=== PATIENT | female | born 1975 | race Caucasian/White ===

== ENCOUNTER → 2018-11-15 | Outpatient (CLI) | payer OTHER | END | disposition home or self-care (01) | LOC: PLD 14:06 → LAB SHORT 14:06 | DX: D22.4 Melanocytic nevi of scalp and neck (principal) | CPT/HCPCS: 88305 ==

== ENCOUNTER 2019-12-28 01:44 | Emergency (ER) | payer BC ==
[~2019-12-28] VITALS: Ht 175.3 cm; Wt 70.3 kg
[2019-12-28] MEDS ORDERED: Crestor20 MG PO (02:05)
[2019-12-28] MEDS ORDERED: SPIR50 PO (02:05)
[2019-12-28] MEDS ORDERED: FLUV50 PO (02:05)
[2019-12-28 02:25] LABS: BASOPHILS ABSOLUTE AUTO 0.05 K/mm3 (0.00-0.23); BASOPHILS PERCENT AUTO 1 % (0-2); EOSINOPHILS ABSOLUTE AUTO 0.09 K/mm3 (0.00-0.68); EOSINOPHILS PERCENT AUTO 1 % (0-6); Hematocrit 38.6 % (33.0-51.0); Hemoglobin 12.7 g/dL (11.5-16.0); IMMATURE GRAN ABSOLUTE AUTO 0.01 K/mm3 (0.00-0.10); IMMATURE GRAN PERCENT AUTO 0 % (0-1); LYMPHOCYTES ABSOLUTE AUTO 2.31 K/mm3 (0.84-5.20); LYMPHOCYTES PERCENT AUTO 34 % (21-46); MONOCYTES ABSOLUTE AUTO 0.39 K/mm3 (0.16-1.47); MONOCYTES PERCENT AUTO 6 % (4-13); Mean Corpuscular HGB 28.9 pg (26.0-34.0); Mean Corpuscular HGB Conc 32.9 g/dL (31.5-36.5); Mean Corpuscular Volume 88 fL (80-100); Mean Platelet Volume 10.5 fL (9.1-12.4); NEUTROPHILS ABSOLUTE AUTO 4.04 K/mm3 (1.96-9.15); NEUTROPHILS PERCENT AUTO 59 % (41-73); Platelet Count 236 K/mm3 (150-400); RDW Coefficient Variation 12.5 % (11.7-14.2); RDW Standard Deviation 39.5 fL (35.1-46.3); White Blood Cell Count 6.89 K/mm3 (4.00-11.30)
[2019-12-28 02:39] LABS: Alanine Aminotransfer (ALT/SGP 17 U/L (12-78); Albumin, Blood 3.9 g/dL (3.4-5.0); Albumin/Globulin Ratio 1.1 (0.8-1.8); Alk Phos 56 U/L (50-136); Anion Gap 5 mmol/L (6-16); Aspartate Aminotrans (AST/SGOT 14 U/L (12-37); Bilirubin, Total 0.3 mg/dL (0.1-1.0); Blood Urea Nitrogen 16 mg/dL (8-24); CO2, Blood 26 mmol/L (21-32); Calcium, Blood 8.8 mg/dL (8.5-10.1); Chloride, Blood 108 mmol/L (98-108); Globulin, Blood 3.7 g/dL (2.2-4.0); Glomerular Filtration Rate >60 (60-); Glucose, Blood 94 mg/dL (70-99); Potassium, Blood 3.6 mmol/L (3.5-5.5); Sodium, Blood 139 mmol/L (136-145); Total Protein, Blood 7.6 g/dL (6.4-8.2); Troponin I <0.015 ng/mL (0.000-0.040)
== END 2019-12-28 03:56 | disposition home or self-care (01) ==
LOC: ER 01:44
PROVIDERS: Emergency Medicine
DX: R07.89 Other chest pain (principal); E78.5 Hyperlipidemia, unspecified; Z88.2 Allergy status to sulfonamides; Z79.899 Other long term (current) drug therapy; Z87.891 Personal history of nicotine dependence
CPT/HCPCS: 36415; 71046; 80053; 83690; 84484; 85025; 85379; 93005; 93010; 96374; 99285-25; J1885

== ENCOUNTER → 2021-02-17 | Outpatient (CLI) | payer BC ==
[~2021-02-17] MED LIST: Crestor20 MG PO; FLUV50 PO; SPIR50 PO
== END | disposition home or self-care (01) ==
LOC: PLD 11:15 → LAB SHORT 11:15
DX: D48.5 Neoplasm of uncertain behavior of skin (principal)
CPT/HCPCS: 88305; 88312; 88342

== ENCOUNTER → 2023-02-10 | Outpatient (CLI) | payer BC | END | disposition home or self-care (01) | LOC: PLD 11:50 → LAB SHORT 11:50 | DX: D48.5 Neoplasm of uncertain behavior of skin (principal) | CPT/HCPCS: 88305 ==

== ENCOUNTER 2025-05-23 09:29 | Day surgery (SDC) | payer BC ==
[2025-05-23] VITALS (21 sets, daily range): BP systolic 105–139; BP diastolic 55–77
[~2025-05-23] VITALS: Ht 174 cm; Wt 69.3 kg
[~2025-05-23 09:29] MED LIST changes: +CeFAZolin Sodium 2,000 MG in NS 100 ML IV SCH; -Crestor20 MG PO; +Lactated Ringer's 1,000 ML IV SCH; +ROSUVASTATIN CA20 MG PO
[2025-05-23] MEDS ORDERED: SUMA25 PO (10:17)
[2025-05-23] MEDS ORDERED: Bupivacaine 0.5% HCl 5 MG/ML 30MLVIAL ONE (10:36)
[2025-05-23] MEDS ORDERED: propofoL 20 ML IV ONE (10:45)
[2025-05-23] MEDS ORDERED: FentaNYL Citrate 50 MCG/ML 2 ML Injection ONE ×2 (10:45→16:29)
[2025-05-23] MEDS ORDERED: Rocuronium Bromide 10 MG/ML 5ML Injection IV ONE (10:45)
--- NOTE | 2025-05-23 10:54 | NUR ---
BILAT CONTACT LENSES REMOVED & SENT HOME WITH , CARLEY.
[2025-05-23] MEDS ORDERED: Ondansetron HCl 2 MG / ML 2ML Vial ONE ×2 (11:13→16:26)
[2025-05-23] MEDS ORDERED: Dexamethasone Sod Phos 10 MG/ML 1ML VIAL ONE (11:13)
[2025-05-23] MEDS ORDERED: Glycopyrrolate 0.2 MG/ML 5ML VIAL ONE (11:18)
[2025-05-23] MEDS ORDERED: HYDROmorphone HCl/Pf 1MG SYR IV PRN ×3 (11:30→17:30)
[2025-05-23] MEDS ORDERED: FentaNYL Citrate 50 MCG/ML 2 ML Injection IV PRN ×2 (11:35)
[2025-05-23] MEDS ORDERED: Ondansetron HCl 2 MG / ML 2ML Vial IV PRN ×2 (11:35→17:30)
[2025-05-23] MEDS ORDERED: Metoclopramide HCl 5MG / ML 2ML Vial IV ONE (16:35)
[2025-05-23] MEDS ORDERED: Lactated Ringer's 1,000 ML IV ONE (16:39)
[2025-05-23] MEDS ORDERED: Metoclopramide HCl 5MG / ML 2ML Vial ONE (16:40)
[2025-05-23] MEDS ORDERED: HYDROmorphone HCl/Pf 1MG SYR ONE (16:46)
[2025-05-23] MEDS ORDERED: Lactated Ringer's 1,000 ML IV SCH (17:30)
[2025-05-23] MEDS ORDERED: Naloxone HCl 0.4MG / ML 1ML Vial IV PRN (17:30)
[2025-05-23] MEDS ORDERED: Promethazine HCl 12.5 MG Supp PR PRN (17:30)
[2025-05-23] MEDS ORDERED: Ondansetron 4 MG TAB PO PRN (17:30)
[2025-05-23] MEDS ORDERED: Promethazine HCl 25 MG Tab PO PRN (17:30)
[2025-05-23] MEDS ORDERED: OxyCODONE 5 mg/Acetamin 325 mg TABLET PO PRN (17:35)
[2025-05-23] MEDS ORDERED: Simethicone 80 MG Chew PO PRN (17:35)
[2025-05-23] MEDS ORDERED: DiphenhydrAMINE HCL 25 MG Cap PO PRN (17:35)
--- NOTE | 2025-05-23 17:57 | NUR ---
PT ARRIVED TO ROOM 209 FROM PACU TRANSFERRED PT FROM [facility] TO BED. ORIENTED TO USE OF CALL LIGHT. LCA. HRR. VSS. LAP INCISIONS TO ABD X5 W/TISS ADHESIVE CDI. AMAN PAD CLEAN. PROVIDED SNACKS AND WATER. KPAD TO ABD FOR COMFORT. SPOUSE BEDSIDE.
[2025-05-23] MEDS ORDERED: CeFAZolin Sodium 2,000 MG in NS 100 ML IV SCH (18:00)
[2025-05-23] MEDS ORDERED: Ketorolac Tromethamine 30mg Vial IV PRN (18:30)
[2025-05-23] MEDS ORDERED: Spironolactone 50 MG Tab PO SCH (21:00)
[2025-05-24 04:56] LABS: BASOPHILS ABSOLUTE AUTO 0.02 K/mm3 (0.00-0.23); BASOPHILS PERCENT AUTO 0 % (0-2); EOSINOPHILS PERCENT AUTO 0 % (0-6); Hematocrit 34.8 % (33.0-51.0); Hemoglobin 11.6 g/dL (11.5-16.0); IMMATURE GRAN ABSOLUTE AUTO 0.06 K/mm3 (0.00-0.10); IMMATURE GRAN PERCENT AUTO 0 % (0-1); LYMPHOCYTES ABSOLUTE AUTO 1.37 K/mm3 (0.84-5.20); LYMPHOCYTES PERCENT AUTO 10 % (21-46); MONOCYTES ABSOLUTE AUTO 0.71 K/mm3 (0.16-1.47); MONOCYTES PERCENT AUTO 5 % (4-13); Mean Corpuscular HGB 30.4 pg (26.0-34.0); Mean Corpuscular HGB Conc 33.3 g/dL (31.5-36.5); Mean Corpuscular Volume 91 fL (80-100); Mean Platelet Volume 10.5 fL (9.1-12.4); NEUTROPHILS ABSOLUTE AUTO 12.04 K/mm3 (1.96-9.15); NEUTROPHILS PERCENT AUTO 85 % (41-73); Platelet Count 163 K/mm3 (150-400); RDW Coefficient Variation 12.1 % (11.7-14.2); RDW Standard Deviation 40.1 fL (35.1-46.3); Red Blood Cell Count 3.81 M/mm3 (3.80-5.20)
--- NOTE | 2025-05-24 06:44 | NUR ---
SUMMARY PT AMBULATORY,TOLERATING PO,VOIDING,PAIN CONTROLLED WITH PO MEDS.SCANT VAG DRNG.
[2025-05-24 07:50] VITALS: BP 122/71
[2025-05-24] MEDS ORDERED: Estradiol 1 MG Tab PO SCH (09:00)
[2025-05-24] MEDS ORDERED: Rosuvastatin Calcium 10 MG Tab PO SCH (09:00)
[2025-05-24] MEDS ORDERED: FluvoxaMINE Maleate 50 MG Tab PO SCH (09:00)
[2025-05-24] MEDS ORDERED: ESTR2 PO (11:29)
[2025-05-24] MEDS ORDERED: PROM25 PO (11:30)
[2025-05-24] MEDS ORDERED: Percocet 5-3251 EACH PO (11:30)
[2025-05-24] MEDS ORDERED: SIME80CH PO (11:31)
--- NOTE | 2025-05-24 12:32 | NUR ---
DISCHARGE PATIENT WOIDING, TOLERATING PO INTAKE, PAIN MANAGED WELL. IV TAKEN OUT. ALL INSTRUCTIONS READ AND SIGNED. BELONGINGS PACKED AND PATIENT LEAVES TO PRIVATE CAR WITH SPOUSE.
== END 2025-05-24 12:35 | disposition home or self-care (01) ==
LOC: ORSCMMR 09:29 → ORD 11:30 → ORSCMMR 13:15 → SURS 16:45 → ORSCMMR 05-24 12:35
PROVIDERS: Obstetrics & Gynecology
PROC: 0UT7FZZ Resection of Bilateral Fallopian Tubes, Via Natural or Artificial Opening With Percutaneous Endoscopic Assistance (ICD-10-PCS; principal; 2025-05-23 11:30)
PROC: 0UT2FZZ Resection of Bilateral Ovaries, Via Natural or Artificial Opening With Percutaneous Endoscopic Assistance (ICD-10-PCS; principal; 2025-05-23 11:30)
PROC: 0WBH4ZX Excision of Retroperitoneum, Percutaneous Endoscopic Approach, Diagnostic (ICD-10-PCS; principal; 2025-05-23 11:30)
PROC: 0UT9FZZ Resection of Uterus, Via Natural or Artificial Opening With Percutaneous Endoscopic Assistance (ICD-10-PCS; principal; 2025-05-23 11:30)
DX: N92.0 Excessive and frequent menstruation with regular cycle (principal); N83.292 Other ovarian cyst, left side; N80.03 Adenomyosis of the uterus; N94.12 Deep dyspareunia; R10.2 Pelvic and perineal pain; D25.9 Leiomyoma of uterus, unspecified; N83.8 Other noninflammatory disorders of ovary, fallopian tube and broad ligament; N73.6 Female pelvic peritoneal adhesions (postinfective)
CPT/HCPCS: 36415; 85025; 86850; 86900; 86901; 88305; 88307; 88342; A9270; J0690; J1100; J1171; J1885; J2405; J2704; J2765; J3010; J7120